=== PATIENT | female | born 1995 | race Two or more races ===

== ENCOUNTER 2018-05-14 19:30 | Emergency (ER) | payer MEDICAID ==
[~2018-05-14] VITALS: Ht 172.7 cm; Wt 64.9 kg
[2018-05-14] MEDS ORDERED: ACETAMINOPHEN 325 MG TAB PO ONE (20:00)
[2018-05-14] MEDS ORDERED: ONDANSETRON ODT 4 MG TAB PO ONE (20:00)
[2018-05-14 20:36] LABS: Basophils # (auto) 0 uL; Basophils % (auto) 0.1 % (0.0-2.0); Eosinophils # (auto) 0 uL; Eosinophils % (auto) 0.2 % (0.0-7.0); Hemoglobin 15.1 g/dL (12.2-16.2); Lymphocytes # (auto) 0.5 uL; Lymphocytes % (auto) 4.1 % (10.0-50.0); Mean Corpuscular Hemoglobin 32.2 pg (28.0-32.0); Mean Corpuscular Hgb Conc. 33.5 g/dL (32.0-36.0); Mean Corpuscular Volume 95.9 fL (80.0-100.0); Monocytes % (auto) 8.5 % (0.0-12.0); Neutrophils # (auto) 10.3 uL; Neutrophils % (auto) 87.1 % (37.0-80.0); Platelet Count (auto) 303 10^3/uL (140-450); Red Blood Cells 4.69 10^6/uL (4.0-5.20); Red Cell Distribution Width 12.5 % (11.8-14.3); White Blood Cell 11.8 10^3/uL (4.4-10.8)
[2018-05-14 20:41] LABS: Urine Bacteria FEW /hpf (None Seen); Urine Blood 1+ /uL (Negative); Urine Mucus FEW (None Seen); Urine Specific Gravity 1.024 (1.001-1.035); Urine WBC 2 /hpf (0 - 5)
[2018-05-14 21:04] LABS: Albumin 3.9 g/dL (3.4-5.0); Calcium 8.6 mg/dL (8.5-10.1); Potassium 3.4 mmol/L (3.5-5.1)
[2018-05-14 21:08] LABS: BUN/Creatinine Ratio 12.2; Bilirubin, Total 1.4 mg/dL (0.2-1.0); Total Protein 8.3 g/dL (6.4-8.2)
[2018-05-14] MEDS ORDERED: SODIUM CHLORIDE 0.9% 1,000 ML IV ONE (21:17)
[2018-05-14 21:30] VITALS: BP 112/64
[2018-05-14] MEDS ORDERED: cefTRIAXone 1GM/50ML D5W 50 ML IV ONE (21:30)
[2018-05-14] MEDS ORDERED: ONDANSETRON HCL 4 MG/2 ML VIAL IV ONE (21:30)
== END 2018-05-14 22:51 | disposition home or self-care (01) ==
LOC: ER 19:30
DX: E86.0 Dehydration (principal); J06.9 Acute upper respiratory infection, unspecified
CPT/HCPCS: 36415; 71046; 74176; 80053; 81001; 85025; 94761; 96365; 96375; 99284; J0696; J2405; J7030; Q0162